=== PATIENT | female | born 1980 | race Caucasian/White ===

== ENCOUNTER 2020-04-29 17:52 | Inpatient (IN) | payer OTHER ==
[~2020-04-29 17:52] MED LIST: Iopamidol-370 76% 500 ML 1 ML ONE
[2020-04-29 18:56] LABS: #Basophils 0.1 thou/uL (0.0-0.2); #Eosinphils 0.2 thou/uL (0.0-0.7); #Lymphocytes 1.9 thou/uL (1.20-3.40); #Monocytes 1.6 thou/uL (0.11-0.59); #Neutrophils 8.7 thou/uL (1.40-6.50); %Basophils 0.7 % (0.0-1.0); %Eosinophils 1.2 % (0.0-10.0); %Lymphocytes 15.6 % (21.0-51.0); %Monocytes 12.6 % (0.0-10.0); %Neutrophils 69.9 % (42.0-75.0); Hemoglobin 11.5 g/dL (12.0-16.0); Mean Corpuscular HGB CONC 31.3 g/dL (32.0-36.0); Mean Corpuscular Hemoglobin 23.8 pg (27.0-31.0); Mean Corpuscular Volume 76.1 fL (78.0-98.0); Platelet Count 433 thou/uL (130-400); RBC Distribution Width 25.1 % (11.5-14.5); Red Blood Cell (RBC) Count 4.85 mill/uL (4.20-5.40); White Blood Cell (WBC) Count 12.4 thou/uL (4.8-10.8)
[2020-04-29] MEDS ORDERED: Pantoprazole 80 MG, Admixture Fee 1 EACH in Sodium Chloride 0.9% 100 ML IVPB SCH (19:00)
[2020-04-29 19:03] LABS: INR-International Normal Ratio 0.9; PTT 32.5 sec (22.9-36.1); Prothrombin Time 12.1 sec (12.0-14.7)
[2020-04-29 19:19] LABS: Anisocytosis MODERATE=16-30 cells (100X) (0-5/hpf); Hypochromia SLIGHT = 6-15 cells (100X) (0-5/hpf); MDiff Complete? YES; Microcytosis SLIGHT = 6-15 cells (100X) (0-5/hpf); Ovalocytes SLIGHT = 2-5 cells (100X) (0-1/hpf); Platelet Morphology Comment Appears Increased; Polychromasia SLIGHT = 2-3 cells (100X) (0-2/hpf); Spherocytes SLIGHT = 1-5 cells (100X) (None Seen)
[2020-04-29 19:23] LABS: ALT (SGPT) 11 U/L (8-55); AST (SGOT) 18 U/L (5-34); Albumin 4.1 g/dL (3.5-5.0); Alkaline Phosphatase 69 U/L (40-110); Anion Gap 14 mmol/L (10-20); BUN (Urea Nitrogen) 9 mg/dL (7.0-18.7); Bilirubin, Total 0.2 mg/dL (0.2-1.2); Calc. Creatinine Clearance 0 mL/min (70-130); Carbon Dioxide 23 mmol/L (22-29); Chloride 99 mmol/L (98-107); Estimated GFR-MDRD 86; Globulin 3.1 g/dL (2.4-3.5); Glucose 120 mg/dL (70-105); Lipase 25 U/L (8-78); Magnesium 1.9 mg/dL (1.6-2.6); Potassium 3.6 mmol/L (3.5-5.1); Protein, Total 7.2 g/dL (6.0-8.3); Sodium 132 mmol/L (136-145)
[2020-04-29] MEDS ORDERED: Morphine 4 MG/ML VIAL ONE ×2 (19:24→21:24)
[2020-04-29] MEDS ORDERED: Pantoprazole 40 MG VIAL ONE (19:24)
[2020-04-29] MEDS ORDERED: Ondansetron PF 4 MG/2 ML Vial ONE (19:24)
[2020-04-29 19:35] LABS: BHCG - Serum Negative (NEGATIVE); Pregs Control Background? CLEAR/WHITE (CLR/WHITE); Pregs Control Bar Appear? YES (CONTROL BAR)
--- NOTE | 2020-04-29 19:41 | RAD ---
XR Chest 1 View Portable History: Vomiting Comparison: None. Findings: Lungs are clear. No pneumothorax or effusion. Cardiac silhouette and mediastinal contours a re within normal limits. No acute osseous abnormality. Impression: No acute intrathoracic abnormality.
--- NOTE | 2020-04-29 20:15 | CT ---
CT Abdomen Pelvis W Con History: Lower abdominal pain Comparison: None. Findings: Lung bases are clear. No pericardial effusion. The liver, gallbladder, spleen are unremarka ble. Likely large submucosal fibroid versus endometrial polyp. Small volume free fluid in the pelvis. Abnormal mucosal hyperenhancement and submucosal edema throughout the ascending, transverse, and desc ending colon. The terminal ileum is inflamed. Small ileocolic mesenteric lymph nodes. Surgical clips adjacent to the cecum. No definite appendix is appreciated. The aortoiliac contour is nonaneurysmal. Pancreas is unremarkable. No hydronephrosis. No acute osseous abnormality. L5 limbus vertebra. Impression: 1. Pancolitis with involvement of the terminal ileum with reactive ileocolic mesenteric lymph nodes c ould be infectious or inflammatory. Given the terminal ileum involvement, Crohn's disease is a possibility. 2. Large 3.5 cm subserosal fibroid versus endometrial polyp. Nonemergent direct visualization recomme nded.
[2020-04-29 20:37] LABS: Bacteria/HPF None Seen HPF (None Seen); Bilirubin Negative (Negative); Blood, Urine 1+ (Negative); Clarity Clear (Clear); Glucose, Urine (Dipstick) Normal (Negative); Ketone, Urine Negative (Negative); Leukocyte Negative Leu/uL (Negative); Mucous/LPF Rare LPF (<2+); Nitrite Negative (Negative); Protein, Urine (Dipstick) 20 mg/dL (Neg-Trace); RBC/HPF 0-3 HPF (0-3); Specific Gravity, Urine Greater than 1.060 (1.002-1.036); Squamous Epithelial 0-3 HPF (0-3); Urobilinogen Normal mg/dL (Less than 2); WBC/HPF 0-3 HPF (0-3); pH, Urine 5.5 (5.0-9.0)
[2020-04-29 20:49] LABS: Amphetamine Not Detected (NotDetected); Barbiturates Screen Not Detected (NotDetected); Benzodiazepine Screen Not Detected (NotDetected); Cocaine Metabolite Screen Not Detected (NotDetected); Medtox Control Line Valid? VALID (VALID); Medtox Reader # READER 4; Methadone Not Detected (NotDetected); Methamphetamine Not Detected (NotDetected); Opiate Screen Detected (NotDetected); Oxycodone Screen Not Detected (NotDetected); Phencyclidine (PCP) Not Detected (NotDetected); THC/Cannabinoid Screen Not Detected (NotDetected); Tricyclic Screen Not Detected (NotDetected)
[2020-04-29] MEDS ORDERED: metroNIDAZOLE 500 MG/100 ML BAG ONE (22:02)
[2020-04-29] MEDS ORDERED: Lisinopril 10 MG TAB ONE (22:02)
[2020-04-29] MEDS ORDERED: Acetaminophen 500 MG TAB ONE (22:02)
[2020-04-29] MEDS ORDERED: valACYclovir 500 MG TAB PO SCH (22:15)
[2020-04-29] MEDS ORDERED: Guaifenesin DM 100-10/5 ML UDCUP PO PRN (23:41)
[2020-04-29] MEDS ORDERED: hydrALAZINE 20 MG/ML VIAL SLOW IVP PRN (23:41)
[2020-04-29] MEDS ORDERED: Promethazine HCl 12.5 MG in Sodium Chloride 0.9% 50 ML IVPB PRN (23:41)
[2020-04-29] MEDS ORDERED: Labetalol HCl 100 MG/20 ML VIAL SLOW IVP PRN (23:41)
[2020-04-29] MEDS ORDERED: Acetaminophen 325 MG TAB PO PRN (23:41)
[2020-04-29] MEDS ORDERED: cloNIDine 0.1 MG TAB PO PRN (23:41)
[2020-04-29] MEDS ORDERED: Electrolyte Replacement Protoc 1 EACH EACH FS SCH (23:45)
--- NOTE | 2020-04-29 23:46 | PDOC.HHP ---
Hospitalist HPI - History of Present Illness Abdominal pain History of Present Illness: Patient is a 39 year old incarcerated female with PMH anemia, GERD, HTN who presents from snf to ED for complaint of abdominal pain x 1-2 weeks. She reports onset of pain over last few weeks as well as a week of coffee ground emesis and possible melena, the pain is worse in the RLQ and periumbilical regions, she has had nausea and vomiting which was dark, stools may have been dark but she is not sure. It has been diarrhea, however recently has not had any stools last day or two. She needed a blood transfusion a few months ago for anemia and was supposed to see GI for colonoscopy, has not yet done this due to incarceration. In ED, tachycardia and fever to 100.3 noted. WBC 12, hyponatremia noted, lactic acid normal. CT abdomen/pelvis revelas pancolitis and reactive mesenteric lymphadenopathy. Dr Morgan consulted and requests stool studies and antibiotics. Patient started on IV cipro and flagyl, tylenol. She also reports new pelvic rash, ED provider examines and rash consistent with new onset general herpes, given valtrex. HR improved with IVF. Patient admitted for further evaluation and care. Hospitalist ROS - Review of Systems Constitutional: reports: weakness, malaise. denies: fever, chills, sweats, other Eyes: denies: pain, vision change, conjunctivae inflammation, eyelid inflammation, redness, other ENT: denies: ear pain, ear discharge, nose pain, nose discharge, nose conges tion, mouth pain, mouth swelling, throat pain, throat swelling, other Respiratory: denies: cough, dry, shortness of breath, hemoptysis, SOB with excertion, pleuritic pain, sputum, wheezing, other Cardiovascular: denies: chest pain, palpitations, orthopnea, paroxysmal noc. dyspnea, edema, light headedness, other Gastrointestinal: reports: nausea, vomiting, abdominal pain, melena, other (coffee ground emesis) Genitourinary: denies: dysuria, frequency, incontinence, hematuria, retention, other Musculoskeletal: denies: neck pain, shoulder pain, arm pain, back pain, hand pa in, leg pain, foot pain, other Skin: denies: rash, lesions, cristhian, bruising, other Neurological: denies: weakness, numbness, incoordination, change in speech, confusion, seizures, other All other systems reviewed; all pertinent +/- noted in HPI/Subj - Medication Medications: lisinopril SatApr 29, 2020 21:34 BONNIE Sutherland, Cheylbi tablet : Strength - 20 mg : ORAL Patient Dose: 20 mg Oral once a day. Protonix oral SatApr 29, 2020 21:35 BONNIE Sutherland, Cheylbi tablet,delayed release (DR/EC) : Strength - 40 mg : ORAL Patient Dose: 40 mg Oral once a day. Hospitalist History - Past Medical History Other Medical History: anemia, GERD, HTN - Past Surgical History Past Surgical History: reports: Appendectomy - Family History Family History: reports: no pertinent history - Social History Alcohol: reports: None Drugs: reports: none - Exam General Appearance: NAD, awake alert Eye: PERRL, anicteric sclera ENT: normocephalic atraumatic, no oropharyngeal lesions, moist mucosa Neck: supple, symmetric, no JVD, no thyromegaly, no lymphadenopathy, no carotid bruit Heart: RRR, no murmur, no gallops, no rubs, normal peripheral pulses Respiratory: CTAB, no wheezes, no rales, no ronchi, normal chest expansion, no tachypnea, normal percussion Gastrointestinal: soft, non-distended, normal bowel sounds, no palpable masses, no hepatomegaly, no splenomegaly, no bruit, tender to palpation Gastrointestinal - other findings: diffuse, most in RLQ and periumbilical Extremities: no cyanosis, no clubbing, no edema Skin: normal turgor, no lesions, no rashes Neurological: cranial nerve grossly intact, normal sensation to touch, no weakness, no focal deficits, no new deficit Musculoskeletal: normal tone, normal strength, no muscle wasting Psychiatric: normal affect, normal behavior, A&O x 3 Hospitalist Results - Labs Result Diagrams: 04/29/20 18:44 04/29/20 18:44 Lab results: WBC 12.4 thou/uL (4.8-10.8) H 04/29/20 18:44 Hgb 11.5 g/dL (12.0-16.0) L 04/29/20 18:44 Hct 36.9 % (36.0-47.0) 04/29/20 18:44 MCV 76.1 fL (78.0-98.0) L 04/29/20 18:44 Plt Count 433 thou/uL (130-400) H 04/29/20 18:44 Neutrophils % 69.9 % (42.0-75.0) 04/29/20 18:44 Sodium 132 mmol/L (136-145) L 04/29/20 18:44 Potassium 3.6 mmol/L (3.5-5.1) 04/29/20 18:44 Chloride 99 mmol/L (98-107) 04/29/20 18:44 Carbon Dioxide 23 mmol/L (22-29) 04/29/20 18:44 BUN 9 mg/dL (7.0-18.7) 04/29/20 18:44 Creatinine 0.75 mg/dL (0.6-1.1) 04/29/20 18:44 Glucose 120 mg/dL (70-105) H 04/29/20 18:44 Lactic Acid 1.4 mmol/L (0.5-2.2) 04/29/20 18:44 Calcium 9.0 mg/dL (7.8-10.44) 04/29/20 18:44 Total Bilirubin 0.2 mg/dL (0.2-1.2) 04/29/20 18:44 AST 18 U/L (5-34) 04/29/20 18:44 ALT 11 U/L (8-55) 04/29/20 18:44 Alkaline Phosphatase 69 U/L (40-110) 04/29/20 18:44 Troponin I Less than 0.010 ng/mL (< 0.028) 04/29/20 18:44 Serum Total Protein 7.2 g/dL (6.0-8.3) 04/29/20 18:44 Albumin 4.1 g/dL (3.5-5.0) 04/29/20 18:44 Lipase 25 U/L (8-78) 04/29/20 18:44 Urine Ketones Negative mg/dL (Negative) 04/29/20 20:00 Urine Blood 1+ (Negative) A 04/29/20 20:00 Urine Nitrite Negative (Negative) 04/29/20 20:00 Ur Leukocyte Esterase Negative Ginger/uL (Negative) 04/29/20 20:00 Urine RBC 0-3 HPF (0-3) 04/29/20 20:00 Urine WBC 0-3 HPF (0-3) 04/29/20 20:00 Ur Squamous Epith Cells 0-3 HPF (0-3) 04/29/20 20:00 Urine Bacteria None Seen HPF (None Seen) 04/29/20 20:00 Additional comment: VITAL SIGNS SatApr 29, 2020 23:00 Koko, BONNIE, Shayna BP: 119/83 Pulse: 102 Resp: 18 Pain: 7 O2 sat: 97 on (Room Air) Time: 04/29/2020 23:00. labs, imaging reports, ED documents reviewed Hospitalist H&P A/P - Plan Plan: Patient is a 39 year old incarcerated female with PMH anemia, GERD, HTN who presents from snf to ED for complaint of abdominal pain x 1-2 weeks. # pancolitis # sepsis secondary to pancolitis Several weeks of abdominal pain, coffee ground emesis, possible melena, diarrhea. In ED, tachycardia and fever to 100.3 noted. WBC 12,lactic acid normal. CT abdomen/pelvis revelas pancolitis and reactive mesenteric lymphadenopathy. Dr Morgan consulted and requests stool studies and antib iotics. Patient started on IV cipro and flagyl - admit to floor - IVF - continue flagyl/cipro - follow culture/stool studies - appreciate GI expertise # anemia # suspected upper GI bleed patient needed a blood transfusion a few months ago for anemia and was supposed to see GI for colonoscopy, has not yet done this due to incarceration - continue IV ppi - consult GI - trend hgb # hyponatremia - Na 132, septic and hypovolemic, trend BMP after IVF # genital herpes - new infection - start valtrex 1000mg bid DVT ppx - SCD GI ppx - PPI full code
[2020-04-30 00:43] VITALS: BMI 23.8
[2020-04-30] MEDS: Sodium Chloride 0.9% 1,000 ML IV SCH ×4 (00:53→21:04)
[2020-04-30] MEDS: Acetaminophen 325 MG TAB PO SCH ×2 (01:24→01:25)
[2020-04-30] MEDS ORDERED: diphenhydrAMINE 25 MG CAP PO PRN (02:50)
[2020-04-30] MEDS: metroNIDAZOLE 500 MG in Premix Bag 1 BAG IVPB SCH ×3 (05:43→22:07)
[2020-04-30] MEDS ORDERED: Morphine 2 MG/ML VIAL SLOW IVP PRN (05:46)
[2020-04-30] MEDS ORDERED: Sodium Chloride 0.9% 500 ML IV SCH (06:15)
[2020-04-30] MEDS ORDERED: Magnesium 2 GM/50 ML 2 GM in Premix Bag 1 BAG IVPB SCH (06:30)
[2020-04-30 07:50] LABS: INR-International Normal Ratio 1.1; Prothrombin Time 13.9 sec (12.0-14.7)
[2020-04-30 08:06] LABS: Anion Gap 11 mmol/L (10-20); BUN (Urea Nitrogen) 7 mg/dL (7.0-18.7); Calc. Creatinine Clearance 87 mL/min (70-130); Calcium 7.8 mg/dL (7.8-10.44); Carbon Dioxide 23 mmol/L (22-29); Chloride 105 mmol/L (98-107); Estimated GFR-MDRD 86; Glucose 92 mg/dL (70-105); Magnesium 1.6 mg/dL (1.6-2.6); Potassium 3.3 mmol/L (3.5-5.1); Sodium 136 mmol/L (136-145)
[2020-04-30 08:26] LABS: HBCM Index 0.06 S/CO (0-0.79); HBSAg Index 0.17 S/CO (0-0.99); Hep A IgM AB Non-Reactive (NonReactive); Hep A IgM S/CO 0.15 S/CO (0-0.79); Hep B Surf Ag Non-Reactive S/CO (NonReactive); Hep C IgG Ab Non-Reactive (NonReactive); Hep C Index 0.06 S/CO (0-0.79); Hepatitis B Core IgM Abs Non-Reactive (NonReactive)
[2020-04-30] MEDS ORDERED: Potassium Chloride 20 MEQ TAB PO SCH (08:30)
[2020-04-30 08:50] LABS: Hemoglobin 9.3 g/dL (12.0-16.0); Mean Corpuscular Hemoglobin 23.4 pg (27.0-31.0); Mean Corpuscular Volume 78.1 fL (78.0-98.0); Mean Platelet Volume 9.6 fL (7.4-10.4); Platelet Count 336 thou/uL (130-400); RBC Distribution Width 24.7 % (11.5-14.5); Red Blood Cell (RBC) Count 3.98 mill/uL (4.20-5.40); White Blood Cell (WBC) Count 7.1 thou/uL (4.8-10.8)
[2020-04-30] MEDS ORDERED: Pantoprazole 40 MG VIAL IVP SCH (09:00)
[2020-04-30 10:49] LABS: Anisocytosis SLIGHT = 6-15 cells (100X) (0-5/hpf); Eosinophils 4 % (0-10); Hypochromia SLIGHT = 6-15 cells (100X) (0-5/hpf); Lymphocytes 26 % (21-51); MDiff Complete? YES; Monocytes 18 % (0-10); Neutrophil 52 % (42-75); Platelet Morphology Comment Appears Adequate
[2020-04-30] MEDS: Ciprofloxacin Lactate/D5W 200 MG in Premix Bag 1 BAG IVPB SCH ×2 (10:59→21:04)
--- NOTE | 2020-04-30 11:15 | PDOC.HOSPP ---
- Subjective Encounter Date: 04/30/20 Encounter Time: 09:00 Subjective: c/o abd pain in right upper an lower quadrants, nausea, cant keep anything down also says she has profuse diarrhea - Objective Vital Signs & Weight: Vital Signs (12 hours) Temp Pulse Resp BP Pulse Ox 04/30/20 07:35 98.2 F 80 16 85/56 L 100 04/30/20 05:47 93/60 04/30/20 04:00 98.2 F 85 18 90/56 L 99 04/30/20 00:37 98.9 F 109 H 18 109/66 98 04/30/20 00:25 98 Weight Weight 122 lb I&O: 04/29/20 04/30/20 05/01/20 06:59 06:59 06:59 Intake Total 1550 Balance 1550 Result Diagrams: 04/30/20 07:27 04/30/20 07:27 Hospitalist ROS - Medication Medications: Active Medications Generic Name Dose Route Start Last Admin Trade Name Freq PRN Reason Stop Dose Admin Sodium Chloride 1,000 mls @ 125 mls/hr 04/29/20 23:45 04/30/20 06:56 Normal Saline 0.9% IV 1,000 mls .Q8H TREVOR Administration Ciprofloxacin/Dextrose 200 mg/ 100 mls @ 100 mls/hr 04/30/20 09:00 04/30/20 10:59 Device IVPB 100 mls BID TREVOR Administration Metronidazole 500 mg/ Device 100 mls @ 100 mls/hr 04/30/20 06:00 04/30/20 05:43 IVPB 100 mls Q8HR TREVOR Administration Morphine Sulfate 2 mg 04/30/20 05:46 04/30/20 07:26 Morphine 2 Mg/Ml Vial SLOW IVP 2 mg Q4H PRN Administration severe pain 4-10 Pantoprazole Sodium 40 mg 04/30/20 09:00 04/30/20 09:32 Pantoprazole 40 Mg Vial IVP 40 mg Q12HR TREVOR Administration - Exam General Appearance: awake alert Eye: PERRL, anicteric sclera ENT: no oropharyngeal lesions, moist mucosa Neck: supple, no JVD Heart: RRR, no murmur Respiratory: no wheezes, no rales Gastrointestinal: soft, non-distended, normal bowel sounds, no guarding, no rigidity Extremities: no cyanosis, no edema Neurological: cranial nerve grossly intact, no focal deficits Psychiatric: normal affect, A&O x 3 Hosp A/P (1) Gastroenteritis Code(s): K52.9 - NONINFECTIVE GASTROENTERITIS AND COLITIS, UNSPECIFIED Status: Acute (2) Chronic anemia Code(s): D64.9 - ANEMIA, UNSPECIFIED Status: Chronic (3) Genital herpes Code(s): A60.00 - HERPESVIRAL INFECTION OF UROGENITAL SYSTEM, UNSPECIFIED Status: Acute Qualifiers: Herpes simplex infection site: vulvovaginitis Qualified Code(s): A60.04 - Herpesviral vulvovaginitis (4) HTN (hypertension) Code(s): I10 - ESSENTIAL (PRIMARY) HYPERTENSION Status: Chronic Qualifiers: Hypertension type: essential hypertension Qualified Code(s): I10 - Essential (primary) hypertension - Plan stool studies have been -ve so far await ova and cyst may need colonoscopy? is on iv fluids, valtrex, cipro and flagyl hemostable hepatitis panel is -ve, will add hiv test as well
[2020-04-30] MEDS ORDERED: Potassium Chloride 20 MEQ in Premix Bag 1 BAG IVPB SCH (11:30)
[2020-04-30] MEDS: Ondansetron PF 4 MG/2 ML Vial IVP PRN (11:48)
[2020-04-30] MEDS: HYDROcodone/Acetaminophen 5/325 mg Tablet PO PRN ×3 (11:58→21:06)
[2020-04-30] MEDS: valACYclovir 500 MG TAB PO SCH ×2 (11:59→21:05)
[2020-04-30 14:50] LABS: SARS-CoV-2 MS2 Positive; SARS-CoV-2 N Gene Negative; SARS-CoV-2 S Gene Negative; SARS-CoV-2 by NAA Not Detected (NotDetected); SARS-CoV-2 orf1ab Negative
[2020-04-30 15:26] LABS: HIV (1/2) Antibody/Antigen Non-Reactive (NonReactive); HIV 1/2 INDEX 0.12 S/CO (<1.00)
[2020-04-30] MEDS ORDERED: GoLYTELY 4,000 ml Bottle PO SCH (17:00)
[2020-04-30] MEDS ORDERED: Enoxaparin Sodium 40 MG/0.4 ML SYRINGE SC SCH (21:00)
[2020-04-30] MEDS: Morphine 2 MG/ML VIAL SLOW IVP PRN (22:07)
--- NOTE | 2020-04-30 23:44 | CON ---
DATE OF CONSULTATION: 04/30/2020 REASON FOR CONSULTATION: Abdominal pain, nausea, vomiting, and diarrhea, and also history of passing dark stool. She also gave history of vomiting coffee-ground material. HISTORY OF PRESENT ILLNESS: Karishma Lopez is a fragile-looking 39-year-old female, who is inmate in . She lives in [place], [place]. Apparently, she was transferred here about 5 days ago. The patient tells me that she has been having abdominal pain and mild nausea off and on for the last several days. Her pain got worse yesterday and also had multiple loose stools. She had no fever or chills. No recent antibiotic intake. Stools are watery and somewhat greenish in color. At times, the stools are also dark, almost tarry. The patient had no similar episodes in the past. The patient tells me that she has had anemia and was given blood transfusion recently in [place]. She was supposed to see the polymerization kettle operator for possible colonoscopy because of anemia. The patient is still menstruating, but her menstrual cycle is irregular. Her bleeding has actually slowed down. She has more of scant bleeding off and on. Before that, she was having heavy menstrual cycles. The patient had no fever, no weight loss. Denies any dysphagia, odynophagia. She came to ER and had abdominal CAT scan. The abdominal CAT scan showed diffuse colitis involving the entire colon and also involving the ileum. There was suggestion of possible Crohn disease. She was hospitalized because of the above reason. She is on antibiotics and also stool studies are pending at the present time. She is having abdominal pain today. No nausea, vomiting. However, she is pooping a lot and her stools are greenish color. She had multiple stools today as per the patient. She had no blood in the stool or any tarry stool today. She has had a stool exam done after she was admitted and stool was negative for tarry or for occult blood. The patient had no history of recent antibiotic intake. . No similar episodes in the past. No relevant history. ALLERGIES: ALLERGIC TO SULFA. SOCIAL HISTORY: Nonsmoker. No alcohol intake. SURGERIES: Appendectomy. MEDICAL ILLNESS: 1. Hypertension. 2. Chronic acid reflux. 3. Anemia and has seen electronic equipment set up operator, also seen a stage set up worker. She scheduled to see a polymerization kettle operator in [place] in the future. MEDICATION LIST: Includes: 1. Lisinopril 20 once a day. 2. Pantoprazole. FAMILY HISTORY: No family history of any cancer. No family history of heart disease, stroke. REVIEW OF SYSTEMS: 10-point system review, HEAD: No chronic headache and no dizziness. EYES: No diplopia. No impaired vision. EARS: No hearing loss. NOSE: No nosebleed. THROAT: No sore throat. No dysphagia. NECK: No stiffness or any limitation of movement. LUNGS: No chronic coughing, hemoptysis. CARDIOVASCULAR: No chest pain. No palpitation. No dyspnea, orthopnea, or PND. GI: As in history of present illness. GENITOURINARY: No dysuria, hematuria. MUSCULOSKELETAL: Nonrelevant. NEUROENDOCRINE: Nonrelevant. PHYSICAL EXAMINATION: GENERAL: She is thin built, appears comfortable. She is in no distress, but keeps saying she feels like crap. VITAL SIGNS: Temperature 98.2 degrees Fahrenheit, pulse is 80, blood pressure is 185/66. HEENT: Conjunctivae are clear. NECK: Supple. CARDIOVASCULAR SYSTEM: Normal heart sounds. LUNGS: Clear to auscultation. ABDOMEN: Soft. Abdomen is nontender. No organomegaly. No masses. Bowel sounds normal. Overall exam is benign. EXTREMITIES: Reveal no edema. LABORATORY DATA: CBC; WBC 12,400, dropping at 7,100; hemoglobin 11.5; hematocrit 36.9; MCV 76.1; platelet count 433,000; polymorphs 69; lymphocytes 15; monocytes 12. Today, hemoglobin 9.3, hematocrit 31. Chem-7 today; normal lytes except potassium slightly over 3.3, BUN is 7, creatinine is 0.75, glucose is 92, calcium is 7.8, magnesium 1.6. Serum test negative. The stool assay for C difficile toxin antigen came negative. Campylobacter antigen negative. Shiga toxin is negative. CLINICAL IMPRESSION: A 39-year-old female with: 1. Abdominal pain, nausea, vomiting, and history of coffee-ground vomiting. She also gives a history of some dark stools. The stool is negative for occult blood. Abdominal CAT scan showed diffuse colitis involving the entire colon and also involving the ileum. There is suggestion that possibly she has Crohn disease. 2. Hypertension. 3. Chronic acid reflux. 4. Anemia, recent blood transfusion. 5. Appendectomy. I did talk to Ms. Lopez about having a colonoscopy and EGD because of the abnormal CAT scan and also history of vomiting coffee-ground material. She agreed. PLAN: I will plan for EGD and colonoscopy tomorrow. Job ID: [id number]
[2020-05-01] MEDS: Morphine 2 MG/ML VIAL SLOW IVP PRN ×3 (05:17→23:35)
[2020-05-01] MEDS: Ondansetron PF 4 MG/2 ML Vial IVP PRN ×2 (05:17→15:40)
[2020-05-01] MEDS: metroNIDAZOLE 500 MG in Premix Bag 1 BAG IVPB SCH ×3 (05:20→21:41)
[2020-05-01] MEDS: Sodium Chloride 0.9% 1,000 ML IV SCH ×3 (05:24→23:22)
[2020-05-01 05:50] LABS: INR-International Normal Ratio 1.1; Prothrombin Time 14.3 sec (12.0-14.7)
[2020-05-01 06:07] LABS: Anion Gap 12 mmol/L (10-20); BUN (Urea Nitrogen) Less than 4 mg/dL (7.0-18.7); Calc. Creatinine Clearance 89 mL/min (70-130); Calcium 8.3 mg/dL (7.8-10.44); Carbon Dioxide 24 mmol/L (22-29); Chloride 107 mmol/L (98-107); Estimated GFR-MDRD 88; Glucose 86 mg/dL (70-105); Magnesium 1.9 mg/dL (1.6-2.6); Potassium 3.6 mmol/L (3.5-5.1); Sodium 139 mmol/L (136-145)
[2020-05-01 06:08] LABS: Band 1 % (5-11); Eosinophils 6 % (0-10); Hemoglobin 9.3 g/dL (12.0-16.0); Lymphocytes 26 % (21-51); MDiff Complete? YES; Mean Corpuscular HGB CONC 30.2 g/dL (32.0-36.0); Mean Corpuscular Hemoglobin 23.6 pg (27.0-31.0); Mean Corpuscular Volume 78.2 fL (78.0-98.0); Mean Platelet Volume 9.4 fL (7.4-10.4); Monocytes 24 % (0-10); Neutrophil 43 % (42-75); Platelet Count 354 thou/uL (130-400); Platelet Morphology Comment Appears Adequate; RBC Distribution Width 24.4 % (11.5-14.5); RBC Morphology Normal; Red Blood Cell (RBC) Count 3.95 mill/uL (4.20-5.40)
[2020-05-01] MEDS ORDERED: Magnesium 2 GM/50 ML 2 GM in Premix Bag 1 BAG IVPB SCH (06:30)
[2020-05-01] MEDS: valACYclovir 500 MG TAB PO SCH ×3 (07:39→20:16)
[2020-05-01] MEDS: Pantoprazole 40 MG VIAL IVP SCH ×2 (08:31→11:07)
[2020-05-01] MEDS: Ciprofloxacin Lactate/D5W 200 MG in Premix Bag 1 BAG IVPB SCH ×3 (08:31→20:16)
[2020-05-01] MEDS ORDERED: Ondansetron HCl/PF 4 MG/2 ML Vial IVP PRN (08:58)
[2020-05-01] MEDS ORDERED: Promethazine HCl 25 MG/ML VIAL IM PRN (08:58)
[2020-05-01] MEDS ORDERED: Promethazine HCl 25 MG/ML VIAL SLOW IVP PRN (08:58)
[2020-05-01] MEDS ORDERED: Sodium Chloride 0.9% 10 ML ONE (09:48)
--- NOTE | 2020-05-01 10:04 | OP ---
DATE OF PROCEDURE: 05/01/2020 PROCEDURE PERFORMED: Esophagogastroduodenoscopy. PREOPERATIVE DIAGNOSIS: A 39-year-old female with abdominal pain, nausea, vomiting, and again history of coffee-ground emesis. The patient underwent esophagogastroduodenoscopy. POSTOPERATIVE DIAGNOSIS: Normal exam. DESCRIPTION OF PROCEDURE: The patient was placed on her left lateral position and was given sedation by Anesthesia Department. A Pentax video gastroscope under direct vision passed down the oropharynx past the GE junction into the stomach and subsequently descending duodenum. The esophageal mucosa appeared normal. The GE junction showed no pathology. Retroflexion failed to show any pathology in fundus or cardia. The gastric body, gastric antrum, no lesion seen. The incisura angularis, no lesions seen. The duodenal bulb, descending duodenum, no lesion seen. The stomach decompressed and the scope removed. Job ID: [id number]
[2020-05-01] MEDS ORDERED: PROPOFOL 200 MG/20 ML VIAL ONE (10:34)
--- NOTE | 2020-05-01 10:51 | OP ---
DATE OF PROCEDURE: 05/01/2020 PROCEDURE PERFORMED: Colonoscopy with biopsy. PREOPERATIVE DIAGNOSIS: A 39-year-old female with abdominal pain and diarrhea. CAT scan showing diffuse colitis, possible Crohn disease. The patient is undergoing colonoscopy. POSTOPERATIVE DIAGNOSES: 1. Superficial ulceration, mild inflammatory changes over the cecal area. 2. Sigmoid colon and rectum show nonspecific edema and some focal hyperemia. The endoscopy, no evidence of inflammatory bowel disease. The endoscopic findings are present most likely infectious colitis. DESCRIPTION OF PROCEDURE: The patient was placed on her left lateral position and was given sedation by Anesthesia Department. A rectal exam was done. The scope was advanced into the rectum. The patient noted to have rectal hemorrhoids. No other lesions felt. A Pentax video colonoscope was introduced into the rectum and withdrawn all the way to cecum. The mucosa appeared normal throughout the colon with normal vascular pattern. The column from the areas of the sigmoid colon and rectum showed some mucosal edema and mild inflammatory changes. The findings were nonspecific. No diffuse colitis or any findings of Crohn disease. The appendicular opening appeared healthy. The ileocecal area showed some superficial ulceration and mild mucosal edema and focal erythema. The findings were nonspecific. The biopsies were obtained from cecum. Withdrawal of scope from the cecum to ascending colon, hepatic flexure, no lesion. In the transverse colon, splenic flexure, descending colon, no lesion. Some areas of sigmoid colon showed mucosal edema and loss of vascular pattern, mild hyperemia. Biopsies obtained from the area. Rectal hemorrhoids. IMPRESSION: The findings were present most likely infectious diarrhea with colitis. RECOMMENDATION: 1. Advance diet to regular diet. 2. May try lomotil later and Imodium for control of diarrhea. Job ID: [id number]
[2020-05-01] MEDS: HYDROcodone/Acetaminophen 5/325 mg Tablet PO PRN ×3 (11:45→20:13)
--- NOTE | 2020-05-01 15:36 | PDOC.HOSPP ---
- Subjective Encounter Date: 05/01/20 Encounter Time: 12:00 Subjective: had egd and colonoscopy today - Objective Vital Signs & Weight: Vital Signs (12 hours) Temp Pulse Resp BP Pulse Ox 05/01/20 07:32 97.8 F 83 16 107/72 97 Weight Admit Weight 122 lb Weight 122 lb I&O: 04/30/20 05/01/20 05/02/20 06:59 06:59 06:59 Intake Total 1550 3300 Balance 1550 3300 Result Diagrams: 05/01/20 05:24 05/01/20 05:24 Hospitalist ROS - Medication Medications: Active Medications Generic Name Dose Route Start Last Admin Trade Name Freq PRN Reason Stop Dose Admin Hydrocodone Bitart/Acetaminophen 1 tab 04/30/20 05:46 05/01/20 11:45 Hydrocodone/Acetaminophen 5/325 Mg Tablet PO 1 tab Q4H PRN Administration Moderate Pain (4-6) Sodium Chloride 1,000 mls @ 125 mls/hr 04/29/20 23:45 05/01/20 15:11 Normal Saline 0.9% IV 1,000 mls .Q8H TREVOR Administration Metronidazole 500 mg/ Device 100 mls @ 100 mls/hr 04/30/20 06:00 05/01/20 13:57 IVPB 100 mls Q8HR TREVOR Administration Ciprofloxacin/Dextrose 200 mg/ 100 mls @ 100 mls/hr 05/01/20 11:00 05/01/20 11:42 Device IVPB 100 mls 1100,[id number] TREVOR Administration Morphine Sulfate 2 mg 04/30/20 20:24 05/01/20 05:17 Morphine 2 Mg/Ml Vial SLOW IVP 2 mg Q4H PRN Administration Moderate to Severe Pain (6-10) Ondansetron HCl 4 mg 04/29/20 23:41 05/01/20 05:17 Ondansetron Pf 4 Mg/2 Ml Vial IVP 4 mg Q6H PRN Administration Nausea/Vomiting use 1st Pantoprazole Sodium 40 mg 05/01/20 09:00 05/01/20 11:07 Pantoprazole 40 Mg Vial IVP 40 mg DAILY TREVOR Administration Sodium Chloride 10 ml 04/30/20 09:00 05/01/20 08:31 Flush - Normal Saline 10 Ml Syringe IVF Not Given Q12HR TREVOR Sodium Chloride 10 ml 04/30/20 00:15 04/30/20 13:53 Flush - Normal Saline 10 Ml Syringe IVF 10 ml PRN PRN Administration Saline Flush Valacyclovir HCl 1,000 mg 04/30/20 09:00 05/01/20 11:44 Valacyclovir 500 Mg Tab PO 1,000 mg BID TREVOR Administration - Exam General Appearance: awake alert Eye: PERRL, anicteric sclera ENT: no oropharyngeal lesions, moist mucosa Neck: supple, no JVD Heart: RRR, no murmur Respiratory: no wheezes, no rales Gastrointestinal: soft, non-tender, non-distended, normal bowel sounds Extremities: no cyanosis, no edema Neurological: cranial nerve grossly intact, no focal deficits Hosp A/P (1) Gastroenteritis Code(s): K52.9 - NONINFECTIVE GASTROENTERITIS AND COLITIS, UNSPECIFIED Status: Acute (2) Chronic anemia Code(s): D64.9 - ANEMIA, UNSPECIFIED Status: Chronic (3) Genital herpes Code(s): A60.00 - HERPESVIRAL INFECTION OF UROGENITAL SYSTEM, UNSPECIFIED Status: Acute Qualifiers: Herpes simplex infection site: vulvovaginitis Qualified Code(s): A60.04 - Herpesviral vulvovaginitis (4) HTN (hypertension) Code(s): I10 - ESSENTIAL (PRIMARY) HYPERTENSION Status: Chronic Qualifiers: Hypertension type: essential hypertension Qualified Code(s): I10 - Essential (primary) hypertension - Plan stool studies have been -ve so far egd. colonoscopy results noted valtrex, cipro and flagyl hemostable hepatitis panel is -ve, hiv -ve dc plan back to Detention?
[2020-05-01] MEDS ORDERED: Fioricet 325/50/40 mg Tablet PO SCH (23:00)
[2020-05-02] MEDS: HYDROcodone/Acetaminophen 5/325 mg Tablet PO PRN (03:58)
[2020-05-02] MEDS: Morphine 2 MG/ML VIAL SLOW IVP PRN (04:52)
[2020-05-02] MEDS: metroNIDAZOLE 500 MG in Premix Bag 1 BAG IVPB SCH (04:55)
[2020-05-02] MEDS ORDERED: Morphine 2 MG/ML VIAL SLOW IVP SCH (05:45)
[2020-05-02 05:52] LABS: INR-International Normal Ratio 1.1; Prothrombin Time 13.8 sec (12.0-14.7)
[2020-05-02] MEDS: Sodium Chloride 0.9% 1,000 ML IV SCH (05:59)
[2020-05-02 06:12] LABS: Anion Gap 12 mmol/L (10-20); BUN (Urea Nitrogen) 5 mg/dL (7.0-18.7); Calc. Creatinine Clearance 95 mL/min (70-130); Calcium 7.8 mg/dL (7.8-10.44); Carbon Dioxide 23 mmol/L (22-29); Chloride 108 mmol/L (98-107); Estimated GFR-MDRD Greater than 90; Glucose 92 mg/dL (70-105); Magnesium 1.8 mg/dL (1.6-2.6); Potassium 3.6 mmol/L (3.5-5.1); Sodium 139 mmol/L (136-145)
[2020-05-02 06:28] LABS: Anisocytosis SLIGHT = 6-15 cells (100X) (0-5/hpf); Band 7 % (5-11); Eosinophils 5 % (0-10); Hemoglobin 8.7 g/dL (12.0-16.0); Hypochromia SLIGHT = 6-15 cells (100X) (0-5/hpf); Lymphocytes 37 % (21-51); MDiff Complete? YES; Mean Corpuscular HGB CONC 29.9 g/dL (32.0-36.0); Mean Corpuscular Hemoglobin 23.5 pg (27.0-31.0); Mean Corpuscular Volume 78.5 fL (78.0-98.0); Mean Platelet Volume 9.5 fL (7.4-10.4); Monocytes 12 % (0-10); Neutrophil 39 % (42-75); Platelet Count 340 thou/uL (130-400); RBC Distribution Width 24.3 % (11.5-14.5); White Blood Cell (WBC) Count 6.5 thou/uL (4.8-10.8)
[2020-05-02 07:21] VITALS: BP 121/82; TEMP 98.2
[2020-05-02] MEDS ORDERED: Magnesium 2 GM/50 ML 2 GM in Premix Bag 1 BAG IVPB SCH (07:30)
[2020-05-02] MEDS: valACYclovir 500 MG TAB PO SCH (09:10)
[2020-05-02] MEDS: Pantoprazole 40 MG VIAL IVP SCH (09:10)
[2020-05-02] MEDS ORDERED: Morphine 4 MG/ML VIAL SLOW IVP PRN (09:45)
--- NOTE | 2020-05-02 14:33 | DIS ---
DATE OF ADMISSION: 04/29/2020 DATE OF DISCHARGE: 05/02/2020 DISCHARGE DISPOSITION: Is to group home. PRIMARY DISCHARGE DIAGNOSES: Nausea, vomiting, diarrhea, initial suspicion for gastroenteritis, chronic anemia, genital herpes. SECONDARY DISCHARGE DIAGNOSIS: Hypertension. PROCEDURES DONE DURING HOSPITALIZATION: Initial CT abdomen and pelvis with contrast done on admission showed findings of pancolitis with involvement of the terminal ileum with reactive ileocolic mesenteric lymph nodes, large 3.5 cm subserosal fibroid versus endometrial polyp. Upper endoscopy on 05/01/[address] Villa showed normal exam. Colonoscopy on the same day done that is 05/01/[address] Villa showed findings suspicious for possible infectious diarrhea with colitis. There was superficial ulceration. Mild inflammatory changes of the cecal area. Sigmoid colon and rectum showed nonspecific edema and some focal hyperemia. There was no endoscopic evidence of inflammatory bowel disease. Chest x-ray done showed no acute intrathoracic abnormality. Stool studies including Campylobacter antigen, shiga toxin 1 and 2, stool for C diff, all of which were negative. Blood cultures x2, no growth. Stool occult x1 was negative. H and H of 8.7 and 29, platelet count 340. PT/INR and PTT within normal limits. BUN 5, creatinine 0.6. Serum test negative. Albumin is 4.1. Liver enzymes were within normal limits. COVID-19 PCR was not detected on 04/29/2020. Acute hepatitis panel, nonreactive. HIV 1 and 2, nonreactive. DISCHARGE MEDICATIONS: 1. Valtrex 1 g p.o. twice daily for another 7 days for genital herpes. 2. Ferrous sulfate 325 mg p.o. twice daily. 3. Lisinopril 20 mg p.o. daily. 4. Protonix 40 mg p.o. daily. ALLERGIES: SULFA. DISCHARGE PLAN: The patient to follow up with her group home primary care physician in a week. She also will need outpatient [facility] consultation for menorrhagia. Outpatient followup with Dr. Villa in 2 weeks. BRIEF COURSE DURING HOSPITALIZATION: The patient initially was brought from group home facility for intractable nausea, vomiting, abdominal pain, and one episode of coffee-ground emesis. The patient also complained of black stools. In view of this history, an initial CAT scan showing findings of possible pancolitis with involvement of ileum. She was admitted to medical floor. She has had consultation with Dr. Villa. Both upper and lower endoscopies were done. Lower endoscopy findings are described above. There were no endoscopic findings to suggest inflammatory bowel disease. Biopsies have been obtained. She needs to follow up with Dr. Villa, possibly in a week or 2 to get the endoscopy biopsy results. During the last 24 hours during her stay here, the patient also complained of having passed clots with her monthly menstrual bleeding. The initial CAT scan suggested possible subserosal fibroid and with her current menorrhagia, she needs to have outpatient appointment with [facility] via primary care physician's referral. She has otherwise remained hemodynamically stable. Her H and H have remained fairly stable. The patient has not had any blood transfusions done during her stay here. She was apparently diagnosed with findings suggestive of genital herpes in the ER. She was placed on Valtrex for the same. She needs to continue this for another 7 days. Please note I have seen and examined the patient on the day of discharge. Job ID: [id number] MTDD
--- NOTE | 2020-05-03 11:19 | PQF ---
CLINICAL DOCUMENTATION CLARIFICATION FORM: Dear Dr. Cagle Date: 05/03/20 Please exercise your independent, professional judgment in responding to the clarification form. Clinical indicators are provided on the bottom of this form for your review. Please check appropriate box(es) to clarify if the following diagnosis has been ruled in our ruled out: SEPSIS [ ] Ruled in diagnosis [ ] Continue to treat [ ] Resolved [ x ] Ruled out diagnosis [ ] Improving [ ] Cannot rule out diagnosis [ ] Other diagnosis [ ] Unable to determine In addition, please specify: Present on Admission (POA): [x ] Yes [ ] No [ ] Unable to determine For continuity of documentation, please document condition throughout progress notes and discharge summary. Thank You. To be completed by CDI/Coding staff for physician review: H&P (ATERNO): "SEPSIS" PULSE 132 WBC 04/29: 12.4 RISKS: PANCOLITIS (H&P) NEW ONSET GENITAL HERPES INFECTION (H&P- ATERNO) "FINDINGS OF COLONOSCOPY MOST LIKELY INFECTIOUS DIARRHEA WITH COLITIS" (OP NOTE 05/01- RAGU) TREATMENT: IV CIPRO (ER-05/02) IV FLAGYL (ER-05/02) VALTREX (04/30-05/02) IV FLUIDS (ER-05/02) BLOOD AND STOOL CULTURES (04/29) CDS Signature: Halie Quiñones RN Phone #: [phone] Date: 05/03/20 This is a permanent part of the Medical Record [facility]
== END 2020-05-02 12:05 | DRG 758 ==
LOC: ERS 17:52 → T4-B 22:11
PROVIDERS: ADMIT Internal Medicine; ATTEND Internal Medicine
PROC: 0DJ08ZZ Inspection of Upper Intestinal Tract, Via Natural or Artificial Opening Endoscopic (ICD-10-PCS; principal; 2020-05-01)
PROC: 0DBN8ZX Excision of Sigmoid Colon, Via Natural or Artificial Opening Endoscopic, Diagnostic (ICD-10-PCS; 2020-05-01)
DX: A60.04 Herpesviral vulvovaginitis (principal); A09 Infectious gastroenteritis and colitis, unspecified; E87.1 Hypo-osmolality and hyponatremia; K63.3 Ulcer of intestine; K21.9 Gastro-esophageal reflux disease without esophagitis; D64.9 Anemia, unspecified; I10 Essential (primary) hypertension; Z20.828 Contact with and (suspected) exposure to other viral communicable diseases; Z90.49 Acquired absence of other specified parts of digestive tract; Z79.899 Other long term (current) drug therapy; Z88.2 Allergy status to sulfonamides; K64.9 Unspecified hemorrhoids
CPT/HCPCS: 36415; 51701; 71045; 74177; 80048; 80053; 80074; 80306; 81003; 81015; 82274; 83605; 83690; 83735; 84484; 84703; 85025; 85610; 85730; 87040; 87045; 87046; 87077; 87186; 87324; 87389; 87427; 87449; 87635; 88305; 93005; 96361; 96365; 96366; 96367; 96375; 96376; C9113; J0744; J2270; J2405; J2704; J3475; J3480; J3490; Q0163; Q9967; U0003

== ENCOUNTER 2020-08-01 01:15 | Emergency (ER) | payer OTHER ==
[2020-08-01] MEDS ORDERED: Aspirin Chewable 81 MG TAB ONE ×2 (02:00)
[2020-08-01 02:03] LABS: Hemoglobin 7.6 g/dL (12.0-16.0); Mean Corpuscular HGB CONC 30.7 g/dL (32.0-36.0); Mean Corpuscular Hemoglobin 21.8 pg (27.0-31.0); Mean Corpuscular Volume 70.9 fL (78.0-98.0); Mean Platelet Volume 7.2 fL (7.4-10.4); Platelet Count 530 thou/uL (130-400); RBC Distribution Width 19.2 % (11.5-14.5); Red Blood Cell (RBC) Count 3.49 mill/uL (4.20-5.40)
[2020-08-01 02:17] LABS: ALT (SGPT) 10 U/L (8-55); AST (SGOT) 20 U/L (5-34); Albumin 4.5 g/dL (3.5-5.0); Alkaline Phosphatase 61 U/L (40-110); Anion Gap 15 mmol/L (10-20); BUN (Urea Nitrogen) 10 mg/dL (7.0-18.7); Bilirubin, Total 0.3 mg/dL (0.2-1.2); Calc. Creatinine Clearance 0 mL/min (70-130); Calcium 9.4 mg/dL (7.8-10.44); Carbon Dioxide 25 mmol/L (22-29); Chloride 103 mmol/L (98-107); Glucose 96 mg/dL (70-105); Potassium 3.6 mmol/L (3.5-5.1); Protein, Total 7.5 g/dL (6.0-8.3); Sodium 139 mmol/L (136-145)
[2020-08-01 02:21] LABS: #Basophils 0.1 thou/uL (0.0-0.2); #Eosinphils 0.4 thou/uL (0.0-0.7); #Lymphocytes 3.3 thou/uL (1.20-3.40); #Monocytes 0.9 thou/uL (0.11-0.59); #Neutrophils 4.3 thou/uL (1.40-6.50); %Basophils 1.2 % (0.0-1.0); %Eosinophils 3.9 % (0.0-10.0); %Lymphocytes 37.1 % (21.0-51.0); %Monocytes 10.1 % (0.0-10.0); %Neutrophils 47.7 % (42.0-75.0); Anisocytosis SLIGHT = 6-15 cells (100X) (0-5/hpf); Hypochromia SLIGHT = 6-15 cells (100X) (0-5/hpf); MDiff Complete? YES; Microcytosis SLIGHT = 6-15 cells (100X) (0-5/hpf); Platelet Morphology Comment Appears Increased
[2020-08-01 02:56] LABS: BHCG - Serum Negative (NEGATIVE); Pregs Control Background? CLEAR/WHITE (CLR/WHITE); Pregs Control Bar Appear? YES (CONTROL BAR)
--- NOTE | 2020-08-01 07:52 | CT ---
PRELIMINARY REPORT/DIRECT RADIOLOGY/EMERGENCY AFTER HOURS PROCEDURE: EXAM: CTA Chest, With Contrast. DATE/ TIME: 08/01/2020, 2:18 AM INDICATION: Feeling bad TECHNIQUE: During the rapid intravenous administration of 100 mL Isovue-370, helical CT of the chest was performed utilizing angiographic protocol. MPRs and multiplanar MIPs were generated and reviewed. Exam was performed using one or more of the following dose reduction techniques: automate d exposure control, adjustment of the mA and/or kV according to patient size, or use of iterative reconstruction technique. COMPARISON: None. FINDINGS: The heart is not enlarged. Pulmonary arterial system is well-opacified and there is no in traluminal filling defect. Aorta is without aneurysm or dissection. The lung parenchyma is clear. There is no pleural effusion or lymphadenopathy. Imaging continues into the abdomen to the mid rema l level. No upper abdominal acute pathology is seen. Osseous structures are normal. IMPRESSION: 1. No pulmonary thromboembolism. 2. No evidence of an acute cardiopulmonary process. ELECTRONICALLY SIGNED BY: Pacheco Morrison DO Aug 01, 2020 2:40:20 AM SWITCHING OPERATOR FINAL REPORT CTA ANGIO CHEST WITH AND WITHOUT CONTRAST: History: Shortness of breath. Comparison: None.. Findings: CT angiogram chest performed after the intravenous administration of contrast. 3-D rendering provided . Impression: Findings and impression are concordant with the preliminary report. Transcribed Date/Time: 08/01/2020 7:59 AM
--- NOTE | 2020-08-01 07:52 | RAD ---
XR Chest 1 View Portable History: Abdominal pain. Chest pain Comparison: Radiograph April 2020 Findings: Lungs are clear. No pneumothorax or effusion. Cardiac silhouette and mediastinal contours a re within normal limits. Impression: No acute intrathoracic abnormality.
[2020-08-01] MEDS ORDERED: Iopamidol 370 76% 100 ML VIAL ONE (10:33)
== END 2020-08-01 03:08 ==
LOC: EEVIPCON 01:15 → ERS 01:15
DX: D64.9 Anemia, unspecified (principal); Z79.899 Other long term (current) drug therapy; K21.9 Gastro-esophageal reflux disease without esophagitis; I10 Essential (primary) hypertension
CPT/HCPCS: 71045; 71275; 80053; 83880; 84484; 84703; 85025; 93005; Q9967

== ENCOUNTER 2021-05-27 07:31 | Emergency (ER) ==
[2021-05-27] MEDS ORDERED: Ketorolac Tromethamine 30 MG/ML VIAL ONE (08:04)
[2021-05-27] MEDS ORDERED: Ondansetron PF 4 MG/2 ML Vial ONE (08:04)
[2021-05-27 08:32] LABS: #Eosinphils 0.1 thou/uL (0.0-0.7); #Lymphocytes 0.5 thou/uL (1.20-3.40); #Monocytes 0.6 thou/uL (0.11-0.59); #Neutrophils 12.3 thou/uL (1.40-6.50); %Basophils 0.1 % (0.0-1.0); %Eosinophils 0.6 % (0.0-10.0); %Lymphocytes 3.4 % (21.0-51.0); %Monocytes 4.5 % (0.0-10.0); %Neutrophils 91.4 % (42.0-75.0); Hemoglobin 14.6 g/dL (12.0-16.0); Mean Corpuscular Hemoglobin 30.3 pg (27.0-31.0); Mean Corpuscular Volume 89.1 fL (78.0-98.0); Mean Platelet Volume 6.7 fL (7.4-10.4); Platelet Count 422 thou/uL (130-400); Red Blood Cell (RBC) Count 4.82 mill/uL (4.20-5.40); White Blood Cell (WBC) Count 13.5 thou/uL (4.8-10.8)
[2021-05-27 08:50] LABS: Albumin 4.2 g/dL (3.5-5.0); Alkaline Phosphatase 58 U/L (40-110); Anion Gap 13 mmol/L (10-20); Bilirubin, Total 0.5 mg/dL (0.2-1.2); Calc. Creatinine Clearance 0 mL/min (70-130); Calcium 9.2 mg/dL (7.8-10.44); Carbon Dioxide 24 mmol/L (22-29); Chloride 101 mmol/L (98-107); Globulin 3.3 g/dL (2.4-3.5); Glucose 123 mg/dL (70-105); Potassium 4.4 mmol/L (3.5-5.1); Protein, Total 7.5 g/dL (6.0-8.3); Sodium 134 mmol/L (136-145)
[2021-05-27 08:51] LABS: AST (SGOT) 17 U/L (5-34); BUN (Urea Nitrogen) 19 mg/dL (7.0-18.7)
[2021-05-27 08:52] LABS: ALT (SGPT) 8 U/L (8-55); Lipase 12 U/L (8-78)
[2021-05-27 09:45] LABS: Bacteria/HPF None Seen HPF (None Seen); Bilirubin Negative (Negative); Blood, Urine Trace (Negative); Clarity Clear (Clear); Glucose, Urine (Dipstick) Normal (Negative); Ketone, Urine Negative (Negative); Leukocyte Negative Leu/uL (Negative); Nitrite Negative (Negative); Protein, Urine (Dipstick) 10 mg/dL (Neg-Trace); RBC/HPF 0-3 HPF (0-3); Urobilinogen Normal mg/dL (Less than 2); WBC/HPF 0-3 HPF (0-3); pH, Urine 5.5 (5.0-9.0)
[2021-05-27] MEDS ORDERED: Iopamidol-370 76% 500 ML 1 ML ONE (10:11)
== END 2021-05-27 11:10 | disposition home or self-care (01) ==
LOC: ERS 07:31
DX: K52.9 Noninfective gastroenteritis and colitis, unspecified (principal); R11.2 Nausea with vomiting, unspecified; K21.9 Gastro-esophageal reflux disease without esophagitis; I10 Essential (primary) hypertension; D64.9 Anemia, unspecified; Z86.718 Personal history of other venous thrombosis and embolism; Z79.899 Other long term (current) drug therapy
CPT/HCPCS: 36415; 74177; 76705; 80053; 81003; 81015; 83690; 85025; 87086; 94760; 96374; 96375; J1885; J2405; Q9967

== ENCOUNTER 2021-09-24 15:14 | Emergency (ER) ==
[2021-09-24 16:18] LABS: #Eosinphils 0.2 thou/uL (0.0-0.7); #Lymphocytes 2.3 thou/uL (1.20-3.40); #Monocytes 0.9 thou/uL (0.11-0.59); %Basophils 0.3 % (0.0-1.0); %Eosinophils 1.8 % (0.0-10.0); %Lymphocytes 22.3 % (21.0-51.0); %Monocytes 8.8 % (0.0-10.0); %Neutrophils 66.7 % (42.0-75.0); Mean Corpuscular HGB CONC 32.6 g/dL (32.0-36.0); Mean Corpuscular Hemoglobin 31.2 pg (27.0-31.0); Mean Corpuscular Volume 95.8 fL (78.0-98.0); Mean Platelet Volume 6.3 fL (7.4-10.4); Platelet Count 474 thou/uL (130-400); RBC Distribution Width 12.6 % (11.5-14.5); Red Blood Cell (RBC) Count 5.12 mill/uL (4.20-5.40); White Blood Cell (WBC) Count 10.4 thou/uL (4.8-10.8)
[2021-09-24] MEDS ORDERED: Ondansetron PF 4 MG/2 ML Vial ONE (16:38)
[2021-09-24 16:40] LABS: ALT (SGPT) 17 U/L (8-55); AST (SGOT) 22 U/L (5-34); Albumin 4.6 g/dL (3.5-5.0); Alkaline Phosphatase 66 U/L (40-110); Anion Gap 18 mmol/L (10-20); BUN (Urea Nitrogen) 15 mg/dL (7.0-18.7); Bilirubin, Total 0.6 mg/dL (0.2-1.2); Calc. Creatinine Clearance 0 mL/min (70-130); Carbon Dioxide 25 mmol/L (22-29); Chloride 102 mmol/L (98-107); Globulin 3.2 g/dL (2.4-3.5); Glucose 117 mg/dL (70-105); Lipase 26 U/L (8-78); Potassium 3.9 mmol/L (3.5-5.1); Protein, Total 7.8 g/dL (6.0-8.3); Sodium 141 mmol/L (136-145)
[2021-09-24 16:46] LABS: BHCG - Serum Negative (NEGATIVE); Pregs Control Background? CLEAR/WHITE (CLR/WHITE); Pregs Control Bar Appear? YES (CONTROL BAR)
[2021-09-24 18:13] LABS: Bacteria/HPF 1+ HPF (None Seen); Bilirubin Negative (Negative); Blood, Urine 1+ (Negative); Clarity Turbid (Clear); Glucose, Urine (Dipstick) Normal (Negative); Ketone, Urine Trace mg/dL (Negative); Leukocyte Negative Leu/uL (Negative); Nitrite Negative (Negative); Protein, Urine (Dipstick) 20 mg/dL (Neg-Trace); RBC/HPF 0-3 HPF (0-3); Specific Gravity, Urine 1.028 (1.002-1.036); Urobilinogen Normal mg/dL (Less than 2); WBC/HPF 0-3 HPF (0-3); pH, Urine 5.5 (5.0-9.0)
[2021-09-24 18:14] LABS: Pregnancy Test - Urine (BHCG) Negative (Negative); Pregu Control Background? CLEAR/WHITE (CLR/WHITE); Pregu Control Bar Appear? YES (CONTROL BAR); Specific Gravity 1.028 (1.002-1.036)
[2021-09-25 12:57] LABS: SARS-CoV-2 PCR by NAA Not Detected (NotDetected)
== END 2021-09-24 19:15 | disposition home or self-care (01) ==
LOC: ERS 15:14
DX: B34.9 Viral infection, unspecified (principal); K21.9 Gastro-esophageal reflux disease without esophagitis; I10 Essential (primary) hypertension; F17.210 Nicotine dependence, cigarettes, uncomplicated; Z86.718 Personal history of other venous thrombosis and embolism; Z20.822 Contact with and (suspected) exposure to COVID-19
CPT/HCPCS: 36416; 80053; 81003; 81015; 81025; 83690; 84703; 85025; 87086; 87804; 96374; J2405; U0003; U0005